=== PATIENT | female | born 2000 | race American Indian/Alaskan Native ===

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

== ENCOUNTER 2021-03-30 03:07 | Emergency (ER) | payer MEDICAID | END 2021-03-30 03:26 | disposition left against medical advice (07) | LOC: ED 03:07 | DX: Z20.822 Contact with and (suspected) exposure to COVID-19 (principal); Z53.21 Procedure and treatment not carried out due to patient leaving prior to being seen by health care provider ==